=== PATIENT | female | born 1935 | race Caucasian/White ===

== ENCOUNTER 2021-01-11 15:17 | Outpatient (CLI) | payer MEDICARE, OTHER, MEDICAID, SELFPAY ==
[2021-01-11 15:45] LABS: Basophils % 0.2 %; Hematocrit 40.6 % (37.0-47.0); Hemoglobin 12.7 g/dL (11.5-15.3); Lymphocytes # 0.9 10^3/uL (0.8-4.8); Lymphocytes % 9.3 %; Mean Corpuscular HGB Conc 31.3 g/dL (30.0-36.0); Mean Corpuscular Hemoglobin 29.3 pg (28.0-34.0); Mean Corpuscular Volume 93.8 fL (81-99); Mean Platelet Volume 10.1 fL (7.4-10.4); Monocytes # 0.1 10^3/uL (0.2-0.9); Monocytes % 0.6 %; Neutrophils # 8.62 10^3/uL (1.8-7.7); Neutrophils % 89.3 %; Nucleated Red Blood Cells % 0 %; Platelet Count 360 10^3/cmm (130-400); Red Blood Count 4.33 10^6/uL (4.1-5.3); Red Cell Distribution Width 13.6 % (12.1-15.1); White Blood Count 9.7 10^3/uL (4.0-10.0)
[2021-01-11 16:30] LABS: Alanine Aminotransferase 7 U/L (0-33); Albumin Level 4.4 g/dL (3.5-5.2); Alkaline Phosphatase 168 IU/L (35-105); Anion Gap 13.3 (5-19); Aspartate Amino Transferase 13 U/L (0-32); Blood Urea Nitrogen 14 mg/dL (8-23); Calcium 9.5 mg/dL (8.5-10.5); Carbon Dioxide 35 mmol/L (22-29); Chloride 96 mmol/L (98-107); Globulin 2.9 g/dL (1.3-4.6); Glucose 142 mg/dL (65-115); Osmolality Calculated 293 mOsm/kg (285-295); Potassium 4.3 mmol/L (3.5-5.1); Sodium 140 mmol/L (136-145); Total Bilirubin 0.2 mg/dL (0.15-1.2); Total Protein 7.3 g/dL (6.6-8.7)
== END 2021-01-11 15:18 | disposition home or self-care (01) ==
PROVIDERS: Family Provider Family Medicine; Visit Provider Internal Medicine
DX: D64.9 Anemia, unspecified (principal); I10 Essential (primary) hypertension
CPT/HCPCS: 80053; 85025

== ENCOUNTER 2021-04-11 07:35 | Emergency (ER) | payer MEDICARE, OTHER, MEDICAID, SELFPAY ==
[2021-04-11] VITALS (11 sets, daily range): BP systolic 124–187; BP diastolic 56–100; PULSE 80–153; RESP 17–30; TEMP 37.4; O2SAT 95–97; BMI 44.3
--- NOTE | 2021-04-11 07:50 | XR_ITS ---
WS: [id number] Portable AP upright chest, 04/11/2021 Clinical Data: sob Comparison: Portable chest, 01/25/2019. Findings: No nodules, masses or effusions are seen. The heart is slightly enlarged. The pulmonary vas cularity is not increased. No pneumonia or pneumothorax is seen. Chronic bilateral interstitial thick ening is seen especially in the right lung. The aortic arch and descending aorta show calcification a nd tortuosity. 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 Monitor leads are on the ch est wall. XR/XR chest 1V portable [id number] Impression: 1. Chronic interstitial fibrosis unchanged. 2. Atherosclerosis and cardiomegaly.
--- NOTE | 2021-04-11 07:51 | ECG_ITS ---
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 Measurements Intervals [place] Rate: 156 P: -35 [place]: 130 QRS: 11 QRSD: 86 T: 0 QT: 164 QTc: 264 Interpretive Statements SUPRAVENTRICULAR TACHYCARDIA NONSPECIFIC ST & T-WAVE ABNORMALITY CRITICAL TEST RESULT Compared to ECG 01/25/2019 16:29:10 T-wave abnormality now present Sinus rhythm no longer present First degree AV block no longer present Electronically Signed On 04-12-2021 14:11:14 CDT by Clementina Kaplan M.D. [email or web address]/store/[id number] kendall
--- NOTE | 2021-04-11 07:52 | ED_ITS ---
HPI - SOB/Dyspnea General: Chief Complaint: Shortness of Breath/Dyspnea Stated Complaint: RESP DISTRESS Time Seen by Provider: 04/11/21 07:42 History of Present Illness: HPI Narrative: 85-year-old female sent from the senior care. Information obtained indicates she has been having cough and difficulty breathing for the past 3 days. Information is limited as the patient does have dementia. Patient does wear O2 per nasal cannula at the senior care. MD elicited complaint: shortness of breath and cough Pertinent past history: COPD and congestive heart failure Onset (ago): day(s) (3) Severity: moderate Treatment prior to arrival: oxygen Review of Systems General: Reports: ROS unobtainable due to mental status Narrative: Information from the senior care indicates she has been having difficulty breathing and a cough for the past 3 days. Physical Exam Narrative: EXAM NARRATIVE: 85-year-old female sent from the senior care with shortness of breath and cough for the past 3 days. She does have a history of COPD as well as CHF. Const: COMMON NORMALS: no acute distress and alert; negative for patient oriented x3 EXAM LIMITATIONS: other limitations (Patient does have dementia.) GENERAL APPEARANCE: cooperative, comfortable, well developed, ill appearing and frail appearing; not combative, not disheveled, not lethargic and not well hydrated NUTRITIONAL APPEARANCE: obese ORIENTATION/CONSCIOUSNESS: Yes awake, Yes oriented to person, Yes oriented to place and Yes Other orientation findings (Patient with history of dementia); not oriented to time and not lethargic HENMT: COMMON NORMALS: normocephalic and atraumatic; oral mucous membranes not moist (Oral mucosa appears dry.) HEAD & SCALP: normal to inspection, normocephalic and atraumatic; no Acrocyanosis present, no hematoma and no laceration FACE & SINUS: normal facial exam, sinuses nontender and face symmetric; no Acrocyanosis present Eye: COMMON NORMALS: Equal, round and reactive pupils present, EOMs intact bilaterally, conjunctivae normal and no scleral icterus GENERAL EYE: appearance normal, both eyes and all related structures and normal light reflex CONJUNCTIVA: Yes conjunctivae normal PUPIL: Yes Equal, round and reactive pupils present DIRECT OPHTHALMOSCOPY: Yes normal light reflex Neck/C-Spine: COMMON NORMALS: full ROM, no lymphadenopathy, supple, no meningeal signs and no JVD GENERAL: Yes normal visual inspection, Yes trachea midline, No anterior neck swelling, No lymphadenopathy and No tender Chest: COMMONS NORMALS: normal inspection of the chest and normal palpation of entire chest wall Resp: COMMON NORMALS: No use of accessory muscles EFFORT & INSPECTION: Yes able to speak in complete sentences, Yes symmetric chest movement, No respiratory distress, No labored, No grunting, No stridor, No Actively coughing, No retractions, No uses accessory muscles and Yes audible wheezes AUSCULTATION: crackles, rales, no rhonchi, wheezes and diminished lung sounds Cardio: COMMON NORMALS: no JVD, regular rhythm, No gallops present (Cardio), No clicks present (Cardio), No murmurs present (Cardio) and No rub (Cardio) RATE: tachycardic RHYTHM: regular rhythm GI: COMMON NORMALS: Normal to inspection, nondistended, normoactive bowel sounds present, Soft to palpation, non-tender, No hepatosplenomegaly present and no masses PALPATION: Yes Soft to palpation and Yes No hepatosplenomegaly present : COMMON NORMALS: Yes no CVA tenderness BLADDER/KIDNEY EXAM: Yes no CVA tenderness Back/Pelvis: COMMON NORMALS: no CVA tenderness Extremity: COMMON NORMALS: normal to inspection, full ROM and no calf tenderness Neuro: COMMON NORMALS: CN's II-XII intact bilaterally, moves all extremities and no focal motor deficits; negative for patient oriented x3 SENSORIUM/ORIENTATION: Yes alert, Yes oriented to person, Yes oriented to place, No oriented to time, Yes Orientation impaired and No lethargic MENINGEAL SIGNS: Yes no meningeal signs Psych: COMMON NORMALS: cooperative, normal affect and speech normal ATTITUDE: Yes calm ACTIVITY/MOTOR BEHAVIOR: Yes appropriate eye contact SPEECH: Yes normal speech Skin: NARRATIVE SKIN EXAM: Skin tear noted to the left hand. Course Reevaluation(s): Reevaluation #1: After the breathing treatment the patient states she is feeling better. Reevaluation shows improved aeration. Vital Signs: Vital signs: Vital Signs Temperature 99.3 F 04/11/21 07:36 Pulse Rate 82 04/11/21 11:19 Respiratory Rate 21 H 04/11/21 11:19 Blood Pressure 131/56 04/11/21 11:19 Pulse Oximetry 96 04/11/21 11:19 MDM - SOB/Dyspnea Lab Data: Labs: Lab Results 04/11/21 04/11/21 04/11/21 Range/Units 07:49 07:49 07:49 WBC 20.4 H (4.0-10.0) 10^3/ uL RBC 4.30 (4.1-5.3) 10^6/u L Hgb 12.9 (11.5-15.3) g/dL Hct 39.9 (37.0-47.0) % MCV 92.8 (81-99) fL MCH 30.0 (28.0-34.0) pg MCHC 32.3 (30.0-36.0) g/dL RDW 13.2 (12.1-15.1) % Plt Count 331 (130-400) 10^3/c mm MPV 9.9 (7.4-10.4) fL Neut % (Auto) 83.8 % Lymph % (Auto) 7.1 % [place] % (Auto) 8.4 % Eos % (Auto) 0.0 % Baso % (Auto) 0.2 % Neut # (Auto) 17.10 H (1.8-7.7) 10^3/u L Lymph # (Auto) 1.5 (0.8-4.8) 10^3/u L [place] # (Auto) 1.7 H (0.2-0.9) 10^3/u L Eos # (Auto) 0.0 (0.0-0.8) 10^3/u L Baso # (Auto) 0.1 (0.0-0.1) 10^3/u L Nucleated RBC % (a uto) 0 % Nucleated RBCs # 0.0 /100WBC Sodium 137 (136-145) mmol/L Potassium 3.3 L (3.5-5.1) mmol/L Chloride 96 L (98-107) mmol/L Carbon Dioxide 28 (22-29) mmol/L Anion Gap 16.3 (5-19) BUN 15 (8-23) mg/dL Creatinine 0.8 (0.5-0.9) mg/dL GFR Calculation Not Reportable Glucose 141 H (65-115) mg/dL Calculated Osmolal ity 287 (285-295) mOsm/k g Lactic Acid 1.7 (0.5-2.2) mmol/L Calcium 8.8 (8.5-10.5) mg/dL Magnesium 2.3 (1.7-2.3) mg/dL Total Bilirubin 0.9 (0.15-1.2) mg/dL AST 14 (0-32) U/L ALT 7 (0-33) U/L Alkaline Phosphata se 152 H (35-105) IU/L Troponin T Baselin e (0-10) ng/L Troponin T 120 Min citizen [place] (0-10) ng/L Delta Troponin T (0-10) ABS# NT-Pro-B Natriuret Pep (0-450) pg/mL Total Protein 6.7 (6.6-8.7) g/dL Albumin 4.0 (3.5-5.2) g/dL Globulin 2.7 (1.3-4.6) g/dL TSH (0.27-4.20) uIU/ mL Urine Color (Yellow) Urine Appearance (CLEAR) Urine pH (5-7) Ur Specific Gravit y (1.005-1.030) Urine Protein (Negative) Urine Glucose (UA) (Normal) Urine Ketones (Negative) Urine Blood (Negative) Urine Nitrate (Negative) Urine Bilirubin (Negative) Urine Urobilinogen (Negative) mg/dL Ur Leukocyte Cheryle ase (Negative) Urine RBC (0-2) /hpf Urine WBC (0-5) /hpf Ur Squamous Epith Cells (0-5) /hpf Ur Transition Epit h Cell /hpf Amorphous Sediment Urine Bacteria (NONE) /hpf Influenza Type A A g (Negative) Influenza Type B A g (Negative) 04/11/21 04/11/21 04/11/21 Range/Units 07:49 07:49 07:49 WBC (4.0-10.0) 10^3/ uL RBC (4.1-5.3) 10^6/u L Hgb (11.5-15.3) g/dL Hct (37.0-47.0) % MCV (81-99) fL MCH (28.0-34.0) pg MCHC (30.0-36.0) g/dL RDW (12.1-15.1) % Plt Count (130-400) 10^3/c mm MPV (7.4-10.4) fL Neut % (Auto) % Lymph % (Auto) % [place] % (Auto) % Eos % (Auto) % Baso % (Auto) % Neut # (Auto) (1.8-7.7) 10^3/u L Lymph # (Auto) (0.8-4.8) 10^3/u L [place] # (Auto) (0.2-0.9) 10^3/u L Eos # (Auto) (0.0-0.8) 10^3/u L Baso # (Auto) (0.0-0.1) 10^3/u L Nucleated RBC % (a uto) % Nucleated RBCs # /100WBC Sodium (136-145) mmol/L Potassium (3.5-5.1) mmol/L Chloride (98-107) mmol/L Carbon Dioxide (22-29) mmol/L Anion Gap (5-19) BUN (8-23) mg/dL Creatinine (0.5-0.9) mg/dL GFR Calculation Glucose (65-115) mg/dL Calculated Osmolal ity (285-295) mOsm/k g Lactic Acid (0.5-2.2) mmol/L Calcium (8.5-10.5) mg/dL Magnesium (1.7-2.3) mg/dL Total Bilirubin (0.15-1.2) mg/dL AST (0-32) U/L ALT (0-33) U/L Alkaline Phosphata se (35-105) IU/L Troponin T Baselin e 42 H (0-10) ng/L Troponin T 120 Min [place] (0-10) ng/L Delta Troponin T (0-10) ABS# NT-Pro-B Natriuret Pep 7341 H (0-450) pg/mL Total Protein (6.6-8.7) g/dL Albumin (3.5-5.2) g/dL Globulin (1.3-4.6) g/dL TSH 0.67 (0.27-4.20) uIU/ mL Urine Color (Yellow) Urine Appearance (CLEAR) Urine pH (5-7) Ur Specific Gravit y (1.005-1.030) Urine Protein (Negative) Urine Glucose (UA) (Normal) Urine Ketones (Negative) Urine Blood (Negative) Urine Nitrate (Negative) Urine Bilirubin (Negative) Urine Urobilinogen (Negative) mg/dL Ur Leukocyte Cheryle ase (Negative) Urine RBC (0-2) /hpf Urine WBC (0-5) /hpf Ur Squamous Epith Cells (0-5) /hpf Ur Transition Epit h Cell /hpf Amorphous Sediment Urine Bacteria (NONE) /hpf Influenza Type A A g (Negative) Influenza Type B A g (Negative) 04/11/21 04/11/21 04/11/21 Range/Units 07:55 08:26 10:00 WBC (4.0-10.0) 10^3/ uL RBC (4.1-5.3) 10^6/u L Hgb (11.5-15.3) g/dL Hct (37.0-47.0) % MCV (81-99) fL MCH (28.0-34.0) pg MCHC (30.0-36.0) g/dL RDW (12.1-15.1) % Plt Count (130-400) 10^3/c mm MPV (7.4-10.4) fL Neut % (Auto) % Lymph % (Auto) % [place] % (Auto) % Eos % (Auto) % Baso % (Auto) % Neut # (Auto) (1.8-7.7) 10^3/u L Lymph # (Auto) (0.8-4.8) 10^3/u L [place] # (Auto) (0.2-0.9) 10^3/u L Eos # (Auto) (0.0-0.8) 10^3/u L Baso # (Auto) (0.0-0.1) 10^3/u L Nucleated RBC % (a uto) % Nucleated RBCs # /100WBC Sodium (136-145) mmol/L Potassium (3.5-5.1) mmol/L Chloride (98-107) mmol/L Carbon Dioxide (22-29) mmol/L Anion Gap (5-19) BUN (8-23) mg/dL Creatinine (0.5-0.9) mg/dL GFR Calculation Glucose (65-115) mg/dL Calculated Osmolal ity (285-295) mOsm/k g Lactic Acid (0.5-2.2) mmol/L Calcium (8.5-10.5) mg/dL Magnesium (1.7-2.3) mg/dL Total Bilirubin (0.15-1.2) mg/dL AST (0-32) U/L ALT (0-33) U/L Alkaline Phosphata se (35-105) IU/L Troponin T Baselin e (0-10) ng/L Troponin T 120 Min [place] 45.92 H (0-10) ng/L Delta Troponin T 3.92 (0-10) ABS# NT-Pro-B Natriuret Pep (0-450) pg/mL Total Protein (6.6-8.7) g/dL Albumin (3.5-5.2) g/dL Globulin (1.3-4.6) g/dL TSH (0.27-4.20) uIU/ mL Urine Color Yellow (Yellow) Urine Appearance Clear (CLEAR) Urine pH 7 (5-7) Ur Specific Gravit y 1.005 (1.005-1.030) Urine Protein 1+ H (Negative) Urine Glucose (UA) Norm (Normal) Urine Ketones Negative (Negative) Urine Blood 2+ H (Negative) Urine Nitrate Negative (Negative) Urine Bilirubin Neg (Negative) Urine Urobilinogen Norm (Negative) mg/dL Ur Leukocyte Cheryle ase Negative (Negative) Urine RBC 0-4 H (0-2) /hpf Urine WBC Rare (0-5) /hpf Ur Squamous Epith Cells 0-4 H (0-5) /hpf Ur Transition Epit h Cell Rare /hpf Amorphous Sediment Not Reportable Urine Bacteria 1+ H (NONE) /hpf Influenza Type A A g Negative (Negative) Influenza Type B A g Negative (Negative) Discharge Plan Discharge Patient Disposition: Home Clinical Impression: Acute exacerbation of chronic obstructive airways disease Acute bronchitis Qualifiers: Bronchitis organism: unspecified organism Qualified Code(s): J20.9 - Acute bronchitis, unspecified Condition: Stable Prescriptions: New azithromycin 250 mg tablet 250 mg PO DAILY 4 Days Qty: 4 RF: 0 albuterol sulfate 2.5 mg /3 mL (0.083 %) solution for nebulization 2.5 mg inhalation Q4H Qty: 180 RF: 0 Discharge Orders: Discharge ED (Routine); Ordered 04/11/21 Ordered By: Daron Handy Referrals: Robert Almendarez DO [Primary Care Provider] - Discharge Diet: Usual diet Discharge Activity: Resume usual activity Patient Instructions: Opioid Safety Activity Restrictions/Additional Instructions: Please use the albuterol per nebulizer every 4 hours. Start the azithromycin 250 mg tomorrow 04/12/2021. Continue O2 per nasal cannula. Continue other medications as prescribed. Have her follow-up with her primary care provider soon as possible. Coding Level of Care Code ED Fur Weigher for Rico Fwivonne Exam Comprehensive
[2021-04-11] MEDS: sodium chloride 0.9% 500 ML 999 ML IV (07:55)
[2021-04-11 07:57] LABS: Basophils # 0.1 10^3/uL (0.0-0.1); Basophils % 0.2 %; Hematocrit 39.9 % (37.0-47.0); Hemoglobin 12.9 g/dL (11.5-15.3); Lymphocytes # 1.5 10^3/uL (0.8-4.8); Lymphocytes % 7.1 %; Mean Corpuscular HGB Conc 32.3 g/dL (30.0-36.0); Mean Corpuscular Volume 92.8 fL (81-99); Mean Platelet Volume 9.9 fL (7.4-10.4); Monocytes # 1.7 10^3/uL (0.2-0.9); Monocytes % 8.4 %; Neutrophils % 83.8 %; Nucleated Red Blood Cells % 0 %; Platelet Count 331 10^3/cmm (130-400); Red Cell Distribution Width 13.2 % (12.1-15.1); White Blood Count 20.4 10^3/uL (4.0-10.0)
[2021-04-11] MEDS: ipratropium-albuterol 3 mL Neb INHALATION (08:12)
[2021-04-11 08:14] LABS: Troponin(5th) Baseline 42 ng/L (0-10)
[2021-04-11 08:15] LABS: Alanine Aminotransferase 7 U/L (0-33); Alkaline Phosphatase 152 IU/L (35-105); Anion Gap 16.3 (5-19); Aspartate Amino Transferase 14 U/L (0-32); Blood Urea Nitrogen 15 mg/dL (8-23); Calcium 8.8 mg/dL (8.5-10.5); Carbon Dioxide 28 mmol/L (22-29); Chloride 96 mmol/L (98-107); Globulin 2.7 g/dL (1.3-4.6); Glucose 141 mg/dL (65-115); Magnesium 2.3 mg/dL (1.7-2.3); Osmolality Calculated 287 mOsm/kg (285-295); Potassium 3.3 mmol/L (3.5-5.1); Sodium 137 mmol/L (136-145); Total Bilirubin 0.9 mg/dL (0.15-1.2); Total Protein 6.7 g/dL (6.6-8.7)
[2021-04-11 08:16] LABS: Lactic Sepsis W/Reflex 1.7 mmol/L (0.5-2.2)
[2021-04-11 08:41] LABS: Thyroid Stimulating Hormone 0.67 uIU/mL (0.27-4.20)
[2021-04-11 08:49] LABS: Bilirubin Urine Neg (Negative); Blood Urine 2+ (Negative); Glucose Urine UA Norm (Normal); Ketones Urine Negative (Negative); Leukocyte Esterase Urine Negative (Negative); Nitrate Urine Negative (Negative); Protein Urine 1+ (Negative); Specific Gravity, Urine 1.005 (1.005-1.030); Urine Appearance Clear (CLEAR); Urine Color Yellow (Yellow); Urobilinogen Urine Norm (Negative); pH Urine 7 (5-7)
[2021-04-11 08:50] LABS: Add Urine Microscopic? YES
[2021-04-11 09:01] LABS: Add Urine Culture? No; Bacteria Urine 1+ /hpf; RBC Urine 0-4 /hpf (0-2); Squamous Epithelial Cell Urine 0-4 /hpf (0-5); Transitional Epi Cells Urine RARE /hpf; WBC Urine RARE /hpf (0-5)
[2021-04-11 09:02] LABS: Influenza A by IFA Negative (Negative); Influenza B by IFA Negative (Negative)
[2021-04-11 09:05] LABS: NT Pro B Type Natriuretic Pept 7341 pg/mL (0-450)
--- NOTE | 2021-04-11 09:51 | ECG_ITS ---
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 Measurements Intervals [place] Rate: 84 P: 73 [place]: 194 QRS: -4 QRSD: 90 T: 121 QT: 380 QTc: 450 Interpretive Statements SINUS RHYTHM ST DEVIATION AND MODERATE T-WAVE ABNORMALITY, CONSIDER LATERAL ISCHEMIA [-0.1+ mV T WAVE IN I/aVL/V5/V6] Compared to ECG 01/25/2019 16:29:10 T-wave abnormality now present Possible ischemia now present First degree AV block no longer present Electronically Signed On 04-11-2021 18:27:03 CDT by Clementnia Kaplan M.D. [id number]
[2021-04-11 10:35] LABS: Troponin 5 2HR 45.92 ng/L (0-10); Troponin 5 2HR Delta 3.92 ABS# (0-10)
[2021-04-11] MEDS: azithromycin 250 mg Tablet 500 MG PO (11:11)
== END 2021-04-11 11:52 | disposition home or self-care (01) ==
PROVIDERS: Emergency Provider Emergency Medicine; PCP Internal Medicine
DX: J44.0 Chronic obstructive pulmonary disease with (acute) lower respiratory infection (principal); J20.9 Acute bronchitis, unspecified; J44.1 Chronic obstructive pulmonary disease with (acute) exacerbation; I70.0 Atherosclerosis of aorta; R06.00 Dyspnea, unspecified
CPT/HCPCS: 36415; 51702; 71045; 80053; 81001; 83605; 83735; 83880; 84443; 84484; 85025; 87040; 87804; 93005; 94640; 99284; J7040; Q0144

== ENCOUNTER 2021-10-24 07:21 | Emergency (ER) | payer MEDICARE, OTHER, MEDICAID, SELFPAY ==
[2021-10-24] VITALS (7 sets, daily range): BP systolic 170–221; BP diastolic 74–97; PULSE 87–98; RESP 20–26; TEMP 39.4; O2SAT 95–99
--- NOTE | 2021-10-24 07:23 | ED_ITS ---
HPI - SOB/Dyspnea General: Chief Complaint: Shortness of Breath/Dyspnea Stated Complaint: NOT FEELING WELL/ COVID BOOSTER YEST Time Seen by Provider: 10/24/21 07:22 History of Present Illness: HPI Narrative: Ms Roberts is an 86-year-old lady with reported history of COPD, chronic hypoxic respiratory failure, heart failure, who presents to the emergency department via EMS due to shortness of breath. The patient reports feeling mildly ill yesterday and received her Covid booster. This morning she woke up feeling short of breath. She does endorse associated cough. No other infectious symptoms. Intensity of symptoms is moderate. Course is unclear. At baseline she wears 4 L of oxygen. She is unsure of any other recent changes in health. EMS gave the patient 80 mg Lasix. Reportedly she has missed a few doses for unclear reasons. Found to be hypoxemic on baseline oxygen with oxygen saturations high 80s. Review of Systems General: Reports: 10 or more systems reviewed and unremarkable except in HPI and below Physical Exam Narrative: EXAM NARRATIVE: GENERAL/CONSTITUTIONAL -mildly ill-appearing. Increased respiratory effort Eyes - PERRL, no conjunctival injection ENMT - Atraumatic external nose and ears. Moist mucous membranes NECK - supple. trachea midline CARDIOVASCULAR - regular rate and rhythm. Bilateral lower extremity 1-2+ edema. RESPIRATORY -diminished to auscultation bilaterally. End expiratory wheezing, c rackles. Increased respiratory effort and rate. ABDOMEN/GI - Nontender/Nondistended. MSK - Extremities without obvious deformity or tenderness to palpation SKIN - Warm, Dry NEURO - alert and appropriately oriented. Moves all extremities equally. Poor memory of medical conditions. Course ED course: - Patient was seen and evaluated by me at bedside - Patient placed on cardiac monitors, IV access obtained - Initial evaluation notable for respiratory status as noted above. No focal neurologic deficits though patient is very poor historian. No family at bedside - Labs notable for No leukocytosis, hemoglobi slightly worse than baseline. metabolic panel without significant abnormality to explain patient's symptoms. BNP is improved from recent prior otherwise elevated. Urinalysis not concerning for urinary tract infection. - Imaging notable for no acute abnormality to explain patient's respiratory status - Initially the patient was declining further medical work-up including repeat troponin. 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 Repeat troponin intermediate range however in discussion with the DPOA patient does not wish to pursue aggressive medical therapy/further hospitalization at this time. Additionally patient does not report chest pain. - Upon serial reexamination after treatment the patient was similar. Fever felt to likely be related to recent vaccination and did improve despite documentation of final vital signs which was erroneous - Based on patient history, evaluation, labs, and imaging as interpreted the most likely cause of the patient's condition is exacerbation of COPD which improved after therapy and patient now currently at baseline and peripheral volume overload as evidence of acute on chronic heart failure for which patient received Lasix. Degree of medical decision making was high given patient's baseline mental status and multiple etiology of patient's presenting symptoms. - The results of ED evaluation were discussed with the patient including prescriptions and/or symptomatic cares (if applicable) including appropriate and responsible use, followup plan, and return precautions. The patient verbalized understanding and felt safe for discharge. - Patient discharged in satisfactory condition. Vital Signs: Vital signs: Vital Signs Temperature 102.9 F H 10/24/21 07:41 Pulse Rate 87 10/24/21 13:11 Respiratory Rate 26 H 10/24/21 07:45 Blood Pressure 189/96 10/24/21 13:11 Pulse Oximetry 99 10/24/21 13:11 MDM - SOB/Dyspnea Medical Records: Attestation: I reviewed the patient's medical records. Lab Data: Attestation: I reviewed the patient's lab results. Labs: Lab Results 10/24/21 10/24/21 10/24/21 07:51 08:21 08:21 WBC Cancelled Corrected WBC Cancelled RBC Cancelled Hgb Cancelled Hct Cancelled MCV Cancelled MCH Cancelled MCHC Cancelled RDW Cancelled Plt Count Cancelled MPV Cancelled Gran % Cancelled Neut % (Auto) Cancelled Lymph % (Auto) Cancelled [place] % (Auto) Cancelled Eos % (Auto) Cancelled Baso % (Auto) Cancelled Neut # (Auto) Cancelled Lymph # (Auto) Cancelled [place] # (Auto) Cancelled Eos # (Auto) Cancelled Baso # (Auto) Cancelled Absolute Gran (aut o) Cancelled Nucleated RBC % (a uto) Cancelled Nucleated RBCs # Cancelled Specimen Type Arterial Sample Site Radial, right ABG pH 7.50 H (7.35-7.45) ABG pCO2 45.2 mmHg H mmHg (35-45) ABG pO2 87.1 mmHg mmHg (80.0-100.0) ABG HCO3 35.5 mmol/L H mmo l/L (22-26) ABG Base Excess 11.1 mmol/L H mmo l/L (-2.0-2.0) Jerod Test Pos Hematocrit 32.9 % L % (37-47) Hgb O2 Saturation 96.6 % % (95-100) Carboxyhemoglobin 1.0 %THgb %THgb (0.4-20.1) Methemoglobin 0.6 % % (0.4-1.5) Total Hemoglobin 10.7 g/dL L g/dL (12-16) O2 Delivery Device Nc O2 Liters/Min 4.0 % % Education Department Registrar ID Gd Sodium 135 mmol/L L mmol /L (136-145) Potassium 4.0 mmol/L mmol/L (3.5-5.1) Chloride 94 mmol/L L mmol/ L (98-107) Carbon Dioxide 28 mmol/L mmol/L (22-29) Anion Gap 17.0 (5-19) BUN 14 mg/dL mg/dL (8-23) Creatinine 0.7 mg/dL mg/dL (0.5-0.9) GFR Calculation Not Reportable Glucose 96 mg/dL mg/dL (65-115) Calculated Osmolal ity 280 mOsm/kg L mOs m/kg (285-295) Lactic Acid Calcium 8.8 mg/dL mg/dL (8.5-10.5) Total Bilirubin 0.6 mg/dL mg/dL (0.15-1.2) AST 14 U/L U/L (0-32) ALT 6 U/L U/L (0-33) Alkaline Phosphata se 150 IU/L H IU/L (35-105) Troponin T Baselin e Troponin T 120 Min crow Delta Troponin T C-Reactive Protein 13.6 mg/L H mg/L (0.0-4.9) NT-Pro-B Natriuret Pep 1045 pg/mL H pg/m L (0-450) Total Protein 7.4 g/dL g/dL (6.6-8.7) Albumin 4.1 g/dL g/dL (3.5-5.2) Globulin 3.3 g/dL g/dL (1.3-4.6) Procalcitonin 0.07 ng/mL ng/mL (0-0.5) TSH 0.41 uIU/mL uIU/m L (0.27-4.20) Urine Color Urine Appearance Urine pH Ur Specific Gravit y Urine Protein Urine Glucose (UA) Urine Ketones Urine Blood Urine Nitrate Urine Bilirubin Prot Sulfosalicyli c Acd Urine Urobilinogen Ur Leukocyte Cheryle ase Urine RBC Urine WBC Ur Squamous Epith Cells Amorphous Sediment Urine Bacteria SARS-CoV-2 Ag (Rap id) 10/24/21 10/24/21 10/24/21 08:21 08:21 08:35 WBC Corrected WBC RBC Hgb Hct MCV MCH MCHC RDW Plt Count MPV Gran % Neut % (Auto) Lymph % (Auto) [place] % (Auto) Eos % (Auto) Baso % (Auto) Neut # (Auto) Lymph # (Auto) [place] # (Auto) Eos # (Auto) Baso # (Auto) Absolute Gran (aut o) Nucleated RBC % (a uto) Nucleated RBCs # Specimen Type Sample Site ABG pH ABG pCO2 ABG pO2 ABG HCO3 ABG Base Excess Jerod Test Hematocrit Hgb O2 Saturation Carboxyhemoglobin Methemoglobin Total Hemoglobin O2 Delivery Device O2 Liters/Min Education Department Registrar ID Sodium Potassium Chloride Carbon Dioxide Anion Gap BUN Creatinine GFR Calculation Glucose Calculated Osmolal ity Lactic Acid 1.3 mmol/L mmol/L (0.5-2.2) Calcium Total Bilirubin AST ALT Alkaline Phosphata se Troponin T Baselin e 24 ng/L H ng/L (0-10) Troponin T 120 Min crow Delta Troponin T C-Reactive Protein NT-Pro-B Natriuret Pep Total Protein Albumin Globulin Procalcitonin TSH Urine Color Urine Appearance Urine pH Ur Specific Gravit y Urine Protein Urine Glucose (UA) Urine Ketones Urine Blood Urine Nitrate Urine Bilirubin Prot Sulfosalicyli c Acd Urine Urobilinogen Ur Leukocyte Cheryle ase Urine RBC Urine WBC Ur Squamous Epith Cells Amorphous Sediment Urine Bacteria SARS-CoV-2 Ag (Rap id) Negative (Negative) 10/24/21 10/24/21 10/24/21 09:24 10:40 11:43 WBC 10.2 10^3/uL H 10 ^3/uL (4.0-10.0) Corrected WBC RBC 3.71 10^6/uL L 10 ^6/uL (4.1-5.3) Hgb 11.2 g/dL L g/dL (11.5-15.3) Hct 35.1 % L % (37.0-47.0) MCV 94.6 fl fl (81-99) MCH 30.2 pg pg (28.0-34.0) MCHC 31.9 g/dL g/dL (30.0-36.0) RDW 13.2 % % (12.1-15.1) Plt Count 225 10^3/cmm 10^3 /cmm (130-400) MPV 12.4 fL H fL (7.4-10.4) Gran % Neut % (Auto) 89.6 % % Lymph % (Auto) 4.3 % % [place] % (Auto) 5.0 % % Eos % (Auto) 0.2 % % Baso % (Auto) 0.5 % % Neut # (Auto) 9.12 10^3/uL H 10 ^3/uL (1.8-7.7) Lymph # (Auto) 0.4 10^3/uL L 10^ 3/uL (0.8-4.8) [place] # (Auto) 0.5 10^3/uL 10^3/ uL (0.2-0.9) Eos # (Auto) 0.0 10^3/uL 10^3/ uL (0.0-0.8) Baso # (Auto) 0.1 10^3/uL 10^3/ uL (0.0-0.1) Absolute Gran (aut o) Nucleated RBC % (a uto) 0.2 % % Nucleated RBCs # 0.0 /100WBC /100W BC Specimen Type Sample Site ABG pH ABG pCO2 ABG pO2 ABG HCO3 ABG Base Excess Jerod Test Hematocrit Hgb O2 Saturation Carboxyhemoglobin Methemoglobin Total Hemoglobin O2 Delivery Device O2 Liters/Min Education Department Registrar ID Sodium Potassium Chloride Carbon Dioxide Anion Gap BUN Creatinine GFR Calculation Glucose Calculated Osmolal ity Lactic Acid Calcium Total Bilirubin AST ALT Alkaline Phosphata se Troponin T Baselin e Troponin T 120 Min crow 29.82 ng/L H ng/L (0-10) Delta Troponin T 5.82 ABS# ABS# (0-10) C-Reactive Protein NT-Pro-B Natriuret Pep Total Protein Albumin Globulin Procalcitonin TSH Urine Color Straw (Yellow) Urine Appearance Clear (CLEAR) Urine pH 8 H (5-7) Ur Specific Gravit y 1.025 (1.005-1.030) Urine Protein Neg (Negative) Urine Glucose (UA) Norm (Normal) Urine Ketones Negative (Negative) Urine Blood 2+ H (Negative) Urine Nitrate Positive H (Negative) Urine Bilirubin Neg (Negative) Prot Sulfosalicyli c Acd Negative (Negative) Urine Urobilinogen Norm mg/dL mg/dL (Negative) Ur Leukocyte Cheryle ase Trace H (Negative) Urine RBC 0-4 /hpf H /hpf (0-2) Urine WBC 0-4 /hpf H /hpf (0-5) Ur Squamous Epith Cells Rare /hpf /hpf (0-5) Amorphous Sediment Not Reportable Urine Bacteria 1+ /hpf H /hpf (NONE) SARS-CoV-2 Ag (Rap id) EKG Data^: EKG 1: Attestation: I personally reviewed and interpreted this EKG as follows: EKG Interpretation Date: 10/24/21 EKG interpretation time: 07:55 Interpretation: Twelve-lead EKG shows a regular rhythm at a rate of 93. WA interval 199, QRS duration 94, QTc 398. Left axis deviation. Interpretation: Sinus rhythm. EKG 2: Attestation: I personally reviewed and interpreted this EKG as follows: EKG Interpretation Date: 10/24/21 EKG interpretation time: 10:02 Interpretation: Twelve-lead EKG shows a regular rhythm at a rate of 94 WA 216, QRS duration 94, QTc 425 Left axis deviation Interpretation: Sinus rhythm. First-degree AV block. Discharge Plan Discharge Patient Disposition: [facility] Clinical Impression: Acute exacerbation of chronic obstructive pulmonary disease, Volume overload Condition: Stable Discharge Orders: Discharge ED (Routine); Ordered 10/24/21 Ordered By: Lambert Arthur Referrals: Robert Almendarez DO [Primary Care Provider] - Discharge Diet: Cardiac and Low Salt Discharge Activity: Resume usual activity Patient Instructions: Heart Failure (ED), COPD (Chronic Obstructive Pulmonary Disease) (ED) Activity Restrictions/Additional Instructions: Thank you for visiting the emergency department. You were seen and evaluated for shortness of breath. The exact cause of your symptoms is unclear, we do not see signs of infection, you may have COPD exacerbation and will be given prescriptions. Additionally you do have some evidence of volume overload, I recommend continuing your home diuretic, EMS gave you 80 mg of Lasix which should help. Please follow-up with your primary care provider. Please return to emergency department for worsening symptoms or anything else that you are concerned about and feel needs emergency department evaluation. Coding Level of Care Code ED Shadowgraph Operator for Rico Hinkle
--- NOTE | 2021-10-24 07:33 | XR_ITS ---
WS: [email or web address] PORTABLE CHEST HISTORY: sob COMPARISON: 04/11/2021 Lung volumes are decreased. Chronic interstitial thickening throughout both lungs. No focal consolida tion or significant progression of disease. No pneumonia. No pleural effusion or pneumothorax. Cardiac size: Mildly enlarged cardiac silhouette. Mediastinum/Aorta: Moderate atherosclerosis aorta. Osteopenia. High riding humeral heads from prior rotator cuff tears. XR/XR chest 1V portable [id number] IMPRESSION: 1. Chronic fibrosis. No superimposed pneumonia or interval change since 021. 2. Moderately calcified thoracic aorta.
--- NOTE | 2021-10-24 07:34 | ECG_ITS ---
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 Measurements Intervals [place] Rate: 93 P: 43 NC: 199 QRS: -17 QRSD: 94 T: 77 QT: 347 QTc: 433 Interpretive Statements SINUS RHYTHM LEFT VENTRICULAR HYPERTROPHY AND ST-T CHANGE [VOLTAGE CRITERIA PLUS ST/T ABNORMALITY] Compared to ECG 04/11/2021 09:57:12 Left ventricular hypertrophy now present ST (T wave) deviation now present T-wave abnormality no longer present Possible ischemia no longer present Electronically Signed On 10-24-2021 17:36:31 EMAIL ADMINISTRATOR by Eric Moncada M.D. [email or web address]/[id number]
[2021-10-24] MEDS: ipratropium-albuterol 3 mL Neb INHALATION (07:53)
[2021-10-24 08:13] LABS: ABG PCO2 45.2 mmHg (35-45); Arterial Blood Gas Hematocrit 32.9 % (37-47); Base Excess ABG 11.1 mmol/L (-2.0-2.0); Blood Gas Allen Test Pos; Blood Gas Operator Identificat GD; Blood Gas Sample Site Radial, right; Blood Gas Sample Type Arterial; HCO3 ABG 35.5 mmol/L (22-26); HGB O2 Sat 96.6 % (95-100); Methemoglobin 0.6 % (0.4-1.5); Oxygen Device NC; PO2 ABG 87.1 mmHg (80.0-100.0); Total Hemoglobin 10.7 g/dL (12-16)
[2021-10-24 09:05] LABS: Lactic Sepsis W/Reflex 1.3 mmol/L (0.5-2.2)
[2021-10-24] MEDS: acetaminophen 325 mg Tablet 650 MG PO (09:10)
[2021-10-24 09:11] LABS: Troponin(5th) Baseline 24 ng/L (0-10)
[2021-10-24 09:18] LABS: NT Pro B Type Natriuretic Pept 1045 pg/mL (0-450); Procalcitonin 0.07 ng/mL (0-0.5); Thyroid Stimulating Hormone 0.41 uIU/mL (0.27-4.20)
[2021-10-24] MEDS: ketorolac 30 mg/mL INJ 15 MG IVP (09:26)
[2021-10-24 09:29] LABS: Alanine Aminotransferase 6 U/L (0-33); Albumin Level 4.1 g/dL (3.5-5.2); Alkaline Phosphatase 150 IU/L (35-105); Aspartate Amino Transferase 14 U/L (0-32); Blood Urea Nitrogen 14 mg/dL (8-23); C Reactive Protein 13.6 mg/L (0.0-4.9); Calcium 8.8 mg/dL (8.5-10.5); Carbon Dioxide 28 mmol/L (22-29); Chloride 94 mmol/L (98-107); Globulin 3.3 g/dL (1.3-4.6); Glucose 96 mg/dL (65-115); Osmolality Calculated 280 mOsm/kg (285-295); Sodium 135 mmol/L (136-145); Total Bilirubin 0.6 mg/dL (0.15-1.2); Total Protein 7.4 g/dL (6.6-8.7)
--- NOTE | 2021-10-24 09:34 | ECG_ITS ---
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 Measurements Intervals [place] Rate: 94 P: 86 RI: 216 QRS: -9 QRSD: 94 T: 84 QT: 373 QTc: 468 Interpretive Statements SINUS RHYTHM WITH FIRST DEGREE AV BLOCK LEFT VENTRICULAR HYPERTROPHY AND ST-T CHANGE [VOLTAGE CRITERIA PLUS ST/T ABNORMALITY] Compared to ECG 10/24/2021 07:47:42 First degree AV block now present ST (T wave) deviation still present Electronically Signed On 10-24-2021 17:44:04 FOOD ASSEMBLER [employer] KITCHEN by Eric Moncada M.D. [id number]
[2021-10-24 09:38] LABS: SARS Covid-2 Antigen Negative (Negative)
[2021-10-24 09:38] LABS: Basophils # 0.1 10^3/uL (0.0-0.1); Basophils % 0.5 %; Eosinophils % 0.2 %; Hematocrit 35.1 % (37.0-47.0); Hemoglobin 11.2 g/dL (11.5-15.3); Lymphocytes # 0.4 10^3/uL (0.8-4.8); Lymphocytes % 4.3 %; Mean Corpuscular HGB Conc 31.9 g/dL (30.0-36.0); Mean Corpuscular Hemoglobin 30.2 pg (28.0-34.0); Mean Corpuscular Volume 94.6 fl (81-99); Mean Platelet Volume 12.4 fL (7.4-10.4); Monocytes # 0.5 10^3/uL (0.2-0.9); Neutrophils # 9.12 10^3/uL (1.8-7.7); Neutrophils % 89.6 %; Nucleated Red Blood Cells % 0.2 %; Platelet Count 225 10^3/cmm (130-400); Red Blood Count 3.71 10^6/uL (4.1-5.3); Red Cell Distribution Width 13.2 % (12.1-15.1); White Blood Count 10.2 10^3/uL (4.0-10.0)
[2021-10-24 11:17] LABS: Troponin 5 2HR 29.82 ng/L (0-10); Troponin 5 2HR Delta 5.82 ABS# (0-10)
[2021-10-24 12:22] LABS: Protein Urine Neg (Negative); Specific Gravity, Urine 1.025 (1.005-1.030); Urine Appearance Clear (CLEAR); Urine Color Straw (Yellow); pH Urine 8 (5-7)
[2021-10-24 12:23] LABS: Add Urine Culture? Yes; Add Urine Microscopic? YES; Bacteria Urine 1+ /hpf; Bilirubin Urine Neg (Negative); Blood Urine 2+ (Negative); Glucose Urine UA Norm (Normal); Ketones Urine Negative (Negative); Leukocyte Esterase Urine Trace (Negative); Nitrate Urine Positive (Negative); RBC Urine 0-4 /hpf (0-2); Squamous Epithelial Cell Urine RARE /hpf (0-5); Urobilinogen Urine Norm (Negative); WBC Urine 0-4 /hpf (0-5)
[2021-10-24 12:43] LABS: Sulfosalicylic Acid Urine Negative (Negative)
== END 2021-10-24 13:15 ==
PROVIDERS: Emergency Provider Emergency Medicine; PCP Internal Medicine
DX: J44.1 Chronic obstructive pulmonary disease with (acute) exacerbation (principal); E87.70 Fluid overload, unspecified
CPT/HCPCS: 36600; 71045; 80053; 81001; 82805; 83605; 83880; 84145; 84443; 84484; 85025; 86140; 87086; 87426; 93005; 94640; 96374; 99284; J1885

== ENCOUNTER 2022-01-03 09:29 | Outpatient (CLI) | payer MEDICARE, OTHER, MEDICAID, SELFPAY ==
[2022-01-03 09:42] LABS: Add Urine Microscopic? NO; Charge for UA Resulting for Rev
[2022-01-03 09:55] LABS: Bilirubin Urine Neg (Negative); Blood Urine Neg (Negative); Glucose Urine UA Norm (Normal); Ketones Urine Negative (Negative); Leukocyte Esterase Urine Negative (Negative); Nitrate Urine Negative (Negative); Protein Urine Neg (Negative); Urine Appearance Clear (CLEAR); Urine Color Straw (Yellow); Urobilinogen Urine Norm (Negative); pH Urine 7 (5-7)
== END 2022-01-03 09:30 | disposition home or self-care (01) ==
PROVIDERS: PCP Internal Medicine; Visit Provider Internal Medicine
DX: Z01.89 Encounter for other specified special examinations (principal)
CPT/HCPCS: 81003

== ENCOUNTER 2022-01-16 12:52 | Emergency (ER) | payer MEDICARE, OTHER, MEDICAID, SELFPAY ==
[2022-01-16 12:55] VITALS: BP 160/94; PULSE 78; RESP 22; O2SAT 100; BMI 41.8
--- NOTE | 2022-01-16 13:10 | XR_ITS ---
WS: [email or web address] Left leg including the tibia and fibula, 01/16/2022 Clinical Data: fall Comparison: None. Findings: No new fractures or dislocations are seen. The tibia and fibula are intact. The soft tissues are norm al. There is an old healed fracture of the distal left fibula. There is an orthopedic plate in the le ft first metatarsal. A left knee arthroplasty is noted. XR/XR tibia fibula LT 2V 90619 Impression: 1. Negative for new fractures. 2. Left knee arthroplasty. 3. Healed fracture of distal left fibula.
--- NOTE | 2022-01-16 13:10 | XR_ITS ---
WS: [email or web address] Right elbow, 2 views, 01/16/2022 Clinical Data: fall Comparison: None. Findings: There is a soft tissue injury posterior to the olecranon. There is a fracture through the olecranon. There is a fracture of the humeral condyles with anterior displacement of the humeral condyles. XR/XR elbow RT 2V 13814 Impression: 1. Fracture of distal right humeral condyles with fracture of the right ulnar o lecranon. 2. Anterior displacement of the elbow joint. 3. Soft tissue injury overlying the olecranon.
--- NOTE | 2022-01-16 13:10 | XR_ITS ---
WS: [email or web address] Left knee, AP and lateral views, 01/16/2022 Clinical Data: fall Comparison: None. Findings: No fractures or dislocations are seen. The left knee arthroplasty is intact. No loosening is seen. Th e joint spaces are normal. The patella is intact. The soft tissues are unremarkable. Vascular calcifications are noted. XR/XR knee LT 1-2V 61916 Impression: 1. Negative for fracture. 2. Left knee arthroplasty.
--- NOTE | 2022-01-16 13:10 | XR_ITS ---
WS: [email or web address] Left femur and thigh, AP and lateral views, 01/16/2022 Clinical Data: fall Comparison: None. Findings: No fractures or dislocations are seen. The soft tissues are normal. There is a left knee arthroplasty .There is degenerative change of the left hip. Monitor leads are adjacent to the left greater trochan ter. Vascular calcification is present in the thigh. XR/XR femur LT min 2V* [id number] Impression: 1. Left knee arthroplasty. 2. Negative for left femoral fracture. 3. Osteoarthritis of the left hip.
--- NOTE | 2022-01-16 13:10 | ECG_ITS ---
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 Measurements Intervals [place] Rate: 82 P: 85 UT: 190 QRS: 30 QRSD: 88 T: 73 QT: 373 QTc: 438 Interpretive Statements SINUS RHYTHM WITH OCCASIONAL SUPRAVENTRICULAR PREMATURE COMPLEXES NONSPECIFIC ST & T-WAVE ABNORMALITY Compared to ECG 01/16/2022 13:41:46 No significant changes Electronically Signed On 01-16-2022 21:21:28 MEDICAL DRIVER by Clementina Kaplan M.D. [email or web address]/store/[id number]
--- NOTE | 2022-01-16 13:10 | XR_ITS ---
WS: [email or web address] Right leg including the tibia and fibula, 2 views, 01/16/2022 Clinical Data: fall Comparison: None. Findings: No fractures or dislocations are seen. The tibia and fibula are intact. The soft tissues are normal. The right knee arthroplasty is intact. XR/XR tibia fibula RT 2V 92348 Impression: 1. Negative for right tibial or fibular fractures. 2. Right knee arthroplasty.
--- NOTE | 2022-01-16 13:10 | XR_ITS ---
WS: [email or web address] Right knee, AP and lateral views, 01/16/2022 Clinical Data: fall Comparison: None. Findings: No fractures or dislocations are seen. The joint spaces are normal. The patella is intact. The soft t issues are unremarkable. The arthroplasty is intact with no loosening. The soft tissues show vascular calcification. XR/XR knee RT 1-2V 92888 Impression: Right knee arthroplasty. Kellgren-John Classification:
--- NOTE | 2022-01-16 13:10 | XR_ITS ---
WS: [email or web address] Portable AP upright chest, 01/16/2022 Clinical Data: trauma Comparison: Portable chest, 10/24/2021. Findings: No nodules, masses or effusions are seen. The heart is slightly enlarged. The pulmonary vas cularity is not increased. No pneumonia or pneumothorax is seen. The aortic arch and descending thora cic aorta show calcification and tortuosity. Monitor leads are on the chest wall. XR/XR chest 1V portable [id number] Impression: Atherosclerosis and mild cardiomegaly.
--- NOTE | 2022-01-16 13:10 | XR_ITS ---
WS: [email or web address] Right arm and humerus, 2 views, 01/16/2022 Clinical Data: fall Comparison: None. Findings: There is elevation of the right humeral head probably from a rotator cuff tear. The right humeral sha ft is intact. The distal right humerus is difficult to see but there is probably a fracture of the hu meral condyles. The soft tissues are normal. XR/[place] [address] Impression: Probable fractures of the distal right humeral condyles.
--- NOTE | 2022-01-16 13:10 | CT_ITS ---
WS: [email or web address] CT HEAD TECHNIQUE: Noncontrast CT of the head obtained from the skullbase to the vertex. CLINICAL INFORMATION: fall COMPARISON: January 03, 2018 DLP: 1007.[address] scans at [facility] use at least one of these dose optimization techniques: automated e xposure control; mA and/or kV adjustment per patient size (includes targeted exams where dose is matc hed to clinical indication); or iterative reconstruction. FINDINGS: No evidence of intracranial hemorrhage or mass effect. Ventricular system and basal cisterns are chu nt. Moderate small vessel changes with moderate parenchymal volume loss. Intracranial vascular calcif ication. No extra-axial fluid collections. No evidence of mass or mass effect. Fluid within the RIGHT maxillary sinus and sphenoid sinuses compatible with sinusitis. Mastoid air ce lls are well aerated. CT/CT head wo con* 68540 IMPRESSION: 1. No evidence of intracranial hemorrhage or mass effect. 2. Moderate small vessel changes with moderate parenchymal volume loss. 3. RIGHT maxillary and sphenoid sinusitis.
--- NOTE | 2022-01-16 13:10 | XR_ITS ---
WS: [email or web address] Right femur and thigh, AP and lateral views, 01/16/2022 Clinical Data: fall Comparison: None. Findings: No new fractures or dislocations are seen. The soft tissues are normal. The visualized knee shows no abnormalities. There is an old intertrochanteric fracture of the right hip reduced with a hip nail. There is a right knee arthroplasty. XR/XR femur RT min 2V* 15700 Impression: 1. Right hip nail reducing old right intertrochanteric hip fracture. 2. Right knee arthroplasty.
--- NOTE | 2022-01-16 13:10 | XR_ITS ---
WS: [email or web address] Pelvis, AP pelvis, 01/16/2022 Clinical Data: trauma Comparison: Right hip and pelvis, 11/28/2008, right hip, 06/24/2016. Findings: No new fractures or dislocations are seen. The SI joints and pubic symphysis are intact. The soft tis sues are not remarkable. A right hip nail is reducing an old right intertrochanteric fracture. Both hips show osteoarthritic n arrowing. The left hip is intact. The SI joints and pubic symphysis show no acute changes. Monitor le ads are on the abdominal wall. XR/XR pelvis 1-2V* 72612 Impression: 1. Negative for new fractures. 2. Right hip nail reducing old right intertrochanteric hip fracture.
--- NOTE | 2022-01-16 13:10 | XR_ITS ---
WS: [email or web address] Right forearm, 2 views, 01/16/2022 Clinical Data: fall Comparison: None. Findings: There are fractures of the distal right humeral condyles and the right ulnar olecranon. There is soft tissue swelling and injury overlying the olecranon fracture. The right radius appears to be intact. The shaft of the ulna is intact. XR/XR forearm RT 2V 73997 Impression: 1. Fractures of the distal right humeral condyles and right ulnar olecranon. 2. Soft tissue swelling and injury over the olecranon fracture.
--- NOTE | 2022-01-16 13:14 | ED_ITS ---
HPI - General Adult General: Chief complaint: Fall Stated complaint: FALL/ PAIN ALL OVER Time Seen by Provider: 01/16/22 13:01 History of Present Illness: Patient is an 86-year-old female to the emergency room after she was found down earlier today. Patient cannot remember what happe beni but around 630 this morning when she woke up, she reports falling. Patient denies any chest pain, shortness breath, lightheadedness palpitation prior to the episode fall. Patient reports pain all over worse in the right elbow. Patient cannot remember if he hit her head. Patient complains of right elbow pain, right humerus pain, right forearm pain, bilateral thigh pain, viral knee pain, bilateral leg pain. She has no other focal complaints today. Patient does not remember her last Tdap. Patient is not on any anticoagulation. Onset: 6:30am Duration:ongoing Location:home Severity:moderate Associated symptoms: Deny chest pain, dyspnea, nausea, rash, palpitations or vomiting Review of Systems Const: Denies: fever(s) or chills Eyes: Denies: change in vision ENMT: Denies: mouth pain Card: Denies: chest pain or palpitations Resp: Denies: dyspnea or non-productive cough GI: Denies: abdominal pain, nausea, vomiting or diarrhea : Denies: dysuria Musc: Reports: extremity pain (+R elbow pain/abrasion/with blood) and other (+ Bilateral knee pain/thigh pain/tib-fib pain, + right forearm/elbow pain) Skin/Breast: Reports: new lesions (+L elbow laceration and bleeding); Denies: rash Neuro: Denies: weakness in extremities Psych: Reports: other (Normal mood) Shamar/Lymph: Denies: easy bruising PFSH ED 2 PFSH: Medical History (Updated 01/16/22 @ 17:22 by Marlys To MD) Dementia Social History (Updated 01/16/22 @ 13:17 by Marlys To MD) Smoking and tobacco status: never smoked Alcohol intake: never Physical Exam Const: COMMON NORMALS: alert HENMT: COMMON NORMALS: atraumatic HEAD & SCALP: atraumatic MOUTH: moist mucous membranes not abnormal Eye: COMMON NORMALS: EOMs intact bilaterally and conjunctivae normal CONJUNCTIVA: Yes conjunctivae normal Neck/C-Spine: COMMON NORMALS: full ROM and supple Resp: COMMON NORMALS: normal respiratory effort and clear to auscultation bilaterally AUSCULTATION: clear to auscultation bilaterally Cardio: COMMON NORMALS: regular rate RATE: regular rate GI: COMMON NORMALS: Soft to palpation and non-tender PALPATION: Yes Soft to palpation Extremity: OTHER: + Right elbow abrasion/lacerationwith significant tenderness to palpation decr eased range of motion of the right elbow due to pain, moderate tenderness to palpation of the right humerus and right forearm to palpation, neurovascular exam of the right upper extremity intact, plus bilateral tib-fib tenderness palpation, bilateral knee tenderness palpation, range of motion of bilateral knees intact, bilateral thigh tenderness palpation. +mild R elbow laceration oozing of blood Neuro: SENSORIUM/ORIENTATION: Yes alert MOTOR EXAM: No Abnormal motor strength present and Other motor observations present (no focal motor deficits) Psych: COMMON NORMALS: speech normal SPEECH: Yes normal speech MOOD & AFFECT: Yes euthymic mood Procedures Laceration Laceration 1: Site: upper extremity and other Side (If applicable): right Size (cm): 5 Description: flap Depth: simple, single layer Local Anesthetic: lidocaine 1% Amount of anesthesia used (mL): 4 Pre-repair: wound explored and irrigated extensively Skin layer closed with: vicryl Size (cm): 3-0 Number of sutures: 3 Technique: simple, interrupted and running Orthopedic Splinting/Casting Injury #1: Side: right Upper Extremity Injury Location: elbow Upper Extremity Immobilizer: sling/shoulder immobilizer and posterior splint Additional Comments: Neurovascular exam of the affected extremity intact after splint placement Course Vital Signs: Vital signs: Vital Signs Pulse Rate 80 01/16/22 14:55 Respiratory Rate 18 01/16/22 14:55 Blood Pressure 164/89 01/16/22 14:55 Pulse Oximetry 94 01/16/22 14:55 [facility] - General Adult Medical Decision Making 86-year-old female presents emergency room with fall. Patient has mild bleeding abrasion over the right elbow. Range of motion of right elbow severely limited due to pain and swelling. Patient has diffuse pain elsewhere in the body. Questionable LOC. Work-up: CBC, BMP, troponin x2, EKG x2, CT head, x-ray right elbow, x-ray forearm, x-ray humerus, bilateral knee x-ray, bilateral tib-fib x-ray, bilateral thigh x-ray, pelvis and chest x-ray Intervention: Tylenol, observation On reassessment, patient was found to have a right humeral condylar fracture. Case discussed with Dr. Villagomez who recommended posterior splint. Patient also to have a posterior elbow superifical laceration w/ skin tags. Lesions were rep aired loosely with sutures to stop bleeding. Please refer to the procedure note. Patient is splinted with a posterior splint. Please refer to the procedure note. She has no complaints of active pain. No signs of compartment syndrome currently. UA is consistent with UTI, which is treated with ceftraixone in the ED. Troponin similar to baseline, EKG is non ischemic. I do not suspect that this is cardiac-related. Patient is AAOx3 and fully conversant. She denies any chest pain, palpitation or shortness of breath today prior to the episode of fall. Do not suspect ACS and syncope as the cause of fall. I have given patient follow up with our machine adjuster leader case trim to be seen by our outpatient Dr. Villagomez who will evaluate patient outpatient. Patient aware of a call from our machine adjuster leader case trim to schedule for appointment(s) and verbalizes understanding of the importance of following up. Rx perocect PRN pain, bactrim DS for UTI Disposition: Discharge. Patient counseled regarding diagnostic impression, t reatment plan. Patient given ED strict return precautions to return for continuation, worsening, or development of new symptoms. Instructed to f/u w/ PCP and Dr. Villagomez regarding symptoms today. Patient verbalized understanding. Given strict return precaution for any signs of compartment syndrome. Lab Data : 01/16/22 15:05 01/16/22 15:05 Radiology Impressions Chest X-Ray 01/16/22 13:10 Impression: Atherosclerosis and mild cardiomegaly. Elbow X-Ray 01/16/22 13:10 Impression: 1. Fracture of distal right humeral condyles with fracture of the right ulnar olecranon. 2. Anterior displacement of the elbow joint. 3. Soft tissue injury overlying the olecranon. Femur X-Ray 01/16/22 13:10 Impression: 1. Left knee arthroplasty. 2. Negative for left femoral fracture. 3. Osteoarthritis of the left hip. Forearm X-Ray 01/16/22 13:10 Impression: 1. Fractures of the distal right humeral condyles and right ulnar olecranon. 2. Soft tissue swelling and injury over the olecranon fracture. Head CT 01/16/22 13:10 IMPRESSION: 1. No evidence of intracranial hemorrhage or mass effect. 2. Moderate small vessel changes with moderate parenchymal volume loss. 3. RIGHT maxillary and sphenoid sinusitis. Humerus X-Ray 01/16/22 13:10 Impression: Probable fractures of the distal right humeral condyles. Knee X-Ray 01/16/22 13:10 Impression: 1. Negative for fracture. 2. Left knee arthroplasty. Pelvis X-Ray 01/16/22 13:10 Impression: 1. Negative for new fractures. 2. Right hip nail reducing old right intertrochanteric hip fracture. Tibia/Fibula X-Ray 01/16/22 13:10 Impression: 1. Negative for new fractures. 2. Left knee arthroplasty. 3. Healed fracture of distal left fibula. Laboratory Results WBC 16.0 10^3/uL (4.0-10.0) H 01/16/22 15:05 RBC 4.18 10^6/uL (4.1-5.3) 01/16/22 15:05 Hgb 12.0 g/dL (11.5-15.3) 01/16/22 15:05 Hct 38.5 % (37.0-47.0) 01/16/22 15:05 MCV 92.1 fl (81-99) 01/16/22 15:05 MCH 28.7 pg (28.0-34.0) 01/16/22 15:05 MCHC 31.2 g/dL (30.0-36.0) 01/16/22 15:05 RDW 14.2 % (12.1-15.1) 01/16/22 15:05 Plt Count 296 10^3/cmm (130-400) 01/16/22 15:05 MPV 9.9 fL (7.4-10.4) 01/16/22 15:05 Neut % (Auto) 86.8 % 01/16/22 15:05 Lymph % (Auto) 6.3 % 01/16/22 15:05 [place] % (Auto) 6.1 % 01/16/22 15:05 Eos % (Auto) 0.1 % 01/16/22 15:05 Baso % (Auto) 0.3 % 01/16/22 15:05 Neut # (Auto) 13.89 10^3/uL (1.8-7.7) H 01/16/22 15:05 Lymph # (Auto) 1.0 10^3/uL (0.8-4.8) 01/16/22 15:05 [place] # (Auto) 1.0 10^3/uL (0.2-0.9) H 01/16/22 15:05 Eos # (Auto) 0.0 10^3/uL (0.0-0.8) 01/16/22 15:05 Baso # (Auto) 0.0 10^3/uL (0.0-0.1) 01/16/22 15:05 Nucleated RBC % (auto) 0 % 01/16/22 15:05 Nucleated RBCs # 0.0 /100WBC 01/16/22 15:05 Sodium 138 mmol/L (136-145) 01/16/22 15:05 Potassium 4.1 mmol/L (3.5-5.1) 01/16/22 15:05 Chloride 99 mmol/L (98-107) 01/16/22 15:05 Carbon Dioxide 30 mmol/L (22-29) H 01/16/22 15:05 Anion Gap 13.1 (5-19) 01/16/22 15:05 BUN 16 mg/dL (8-23) 01/16/22 15:05 Creatinine 0.8 mg/dL (0.5-0.9) 01/16/22 15:05 GFR Calculation Not Reportable 01/16/22 15:05 Glucose 108 mg/dL (65-115) 01/16/22 15:05 Calculated Osmolality 288 mOsm/kg (285-295) 01/16/22 15:05 Calcium 9.5 mg/dL (8.5-10.5) 01/16/22 15:05 Troponin T Baseline 26 ng/L (0-10) H 01/16/22 15:05 Troponin T 120 Minute 27.44 ng/L (0-10) H 01/16/22 17:19 Delta Troponin T 1.44 ABS# (0-10) 01/16/22 17:19 Urine Color Yellow (Yellow) 01/16/22 13:30 Urine Appearance Hazy (CLEAR) A 01/16/22 13:30 Urine pH 5 (5-7) 01/16/22 13:30 Ur Specific Roy 1.015 (1.005-1.030) 01/16/22 13:30 Urine Protein Neg (Negative) 01/16/22 13:30 Urine Glucose (UA) Norm (Normal) 01/16/22 13:30 Urine Ketones Negative (Negative) 01/16/22 13:30 Urine Blood 2+ (Negative) H 01/16/22 13:30 Urine Nitrate Negative (Negative) 01/16/22 13:30 Urine Bilirubin Neg (Negative) 01/16/22 13:30 Urine Urobilinogen Neg mg/dL (Negative) 01/16/22 13:30 Ur Leukocyte Esterase 2+ (Negative) H 01/16/22 13:30 Urine RBC 5-10 /hpf (0-2) H 01/16/22 13:30 Urine WBC 25-40 /hpf (0-5) H 01/16/22 13:30 Ur Squamous Epith Cells 0-4 /hpf (0-5) H 01/16/22 13:30 Amorphous Sediment 1+ /hpf 01/16/22 13:30 Urine Bacteria 1+ /hpf (NONE) H 01/16/22 13:30 Imaging Data Other Imaging: Radiologist's impression: [employer] ([facility] [address] XRay Report Signed Patient: Solange Roberts Unit #: [id number] : 1935 Age/Sex: 86 / F ADM Date: 01/16/22 Loc: ER Room/Bed: Attending Dr: Ordering Provider/Ordering MD: Marlys To MD Date of Service: 01/16/22 Procedure(s): XR tibia fibula RT 2V 34490 Accession Number(s): [id number] Report Number: [id number] WS: [email or web address] Right leg including the tibia and fibula, 2 views, 01/16/2022 Clinical Data: fall Comparison: None. Findings: No fractures or dislocations are seen. The tibia and fibula are intact. The soft tissues are normal. The right knee arthroplasty is intact. XR/XR tibia fibula RT 2V 37775 Impression: ? 1. Negative for right tibial or fibular fractures. 2. Right knee arthroplasty. ? Dictated By: Prema Dumont MD Signed By: Prema Dumont MD Signed Date/Time: 01/16/22 1507 DD/ [address] [address] XRay Report Signed Patient: Solange Roberts Unit #: [id number] : 1935 Age/Sex: 86 / F ADM Date: 01/16/22 Loc: ER Room/Bed: Attending Dr: Ordering Provider/Ordering MD: Marlys To MD Date of Service: 01/16/22 Procedure(s): XR tibia fibula LT 2V 92807 Accession Number(s): [id number] Report Number: [id number] WS: [email or web address] Left leg including the tibia and fibula, 01/16/2022 Clinical Data: fall Comparison: None. Findings: No new fractures or dislocations are seen. The tibia and fibula are intact. The soft tissues are normal. There is an old healed fracture of the distal left fibula. There is an orthopedic plate in the left first metatarsal. A left knee arthroplasty is noted. XR/XR tibia fibula LT 2V 47584 Impression: ? 1. Negative for new fractures. 2. Left knee arthroplasty. 3. Healed fracture of distal left fibula. ? Dictated By: Prema Dumont MD Signed By: Prema Dumont MD Signed Date/Time: 01/16/22 1514 DD/ [address] [address] XRay Report Signed Patient: Solange Roberts Unit #: [id number] : 1935 Age/Sex: 86 / F ADM Date: 01/16/22 Loc: ER Room/Bed: Attending Dr: Ordering Provider/Ordering MD: Marlys To MD Date of Service: 01/16/22 Procedure(s): XR pelvis 1-2V* 15642 Accession Number(s): [id number] Report Number: [id number] WS: [email or web address] Pelvis, AP pelvis, 01/16/2022 Clinical Data: trauma Comparison: Right hip and pelvis, 11/28/2008, right hip, 06/24/2016. Findings: No new fractures or dislocations are seen. The SI joints and pubic symphysis are intact. The soft tissues are not remarkable. A right hip nail is reducing an old right intertrochanteric fracture. Both hips show osteoarthritic narrowing. The left hip is intact. The SI joints and pubic symphysis show no acute changes. Monitor leads are on the abdominal wall. XR/XR pelvis 1-2V* 76305 Impression: ? 1. Negative for new fractures. 2. Right hip nail reducing old right intertrochanteric hip fracture. ? Dictated By: Prema Dumont MD Signed By: Prema Dumont MD Signed Date/Time: 01/16/22 1503 DD/ [address] [address] XRay Report Signed Patient: Solange Roberts Unit #: [id number] : 1935 Age/Sex: 86 / F ADM Date: 01/16/22 Loc: ER Room/Bed: Attending Dr: Ordering Provider/Ordering MD: Marlys To MD Date of Service: 01/16/22 Procedure(s): XR knee LT 1-2V 21282 Accession Number(s): [id number] Report Number: [id number] WS: [email or web address] Left knee, AP and lateral views, 01/16/2022 Clinical Data: fall Comparison: None. Findings: No fractures or dislocations are seen. The left knee arthroplasty is intact. No loosening is seen. The joint spaces are normal. The patella is intact. The soft tissues are unremarkable. Vascular calcifications are noted. XR/XR knee LT 1-2V 76274 Impression: ? 1. Negative for fracture. 2. Left knee arthroplasty. ? ? ? Dictated By: Prema Dumont MD Signed By: Prema Dumont MD Signed Date/Time: 01/16/22 151 DD/ [address] [place] [address] XRay Report Signed Patient: Solange Roberts Unit #: [id number] : 1935 Age/Sex: 86 / F ADM Date: 01/16/22 Loc: ER Room/Bed: Attending Dr: Ordering Provider/Ordering MD: Marlys To MD Date of Service: 01/16/22 Procedure(s): XR knee RT 1-2V 89450 Accession Number(s): [id number] Report Number: [id number] WS: [email or web address] Right knee, AP and lateral views, 01/16/2022 Clinical Data: fall Comparison: None. Findings: No fractures or dislocations are seen. The joint spaces are normal. The patella is intact. The soft tissues are unremarkable. The arthroplasty is intact with no loosening. The soft tissues show vascular calcification. XR/XR knee RT 1-2V 92382 Impression: Right knee arthroplasty. ? Kellgren-John Classification: ? Dictated By: Prema Dumont MD Signed By: Prema Dumont MD Signed Date/Time: 01/16/22 1506 DD/ [address] [address] XRay Report Signed Patient: Solange Roberts Unit #: [id number] : 1935 Age/Sex: 86 / F ADM Date: 01/16/22 Loc: ER Room/Bed: Attending Dr: Ordering Provider/Ordering MD: Malrys To MD Date of Service: 01/16/22 Procedure(s): [place] [address] Accession Number(s): [id number] Report Number: [id number] WS: [email or web address] Right arm and humerus, 2 views, 01/16/2022 Clinical Data: fall Comparison: None. Findings: There is elevation of the right humeral head probably from a rotator cuff tear. The right humeral shaft is intact. The distal right humerus is difficult to see but there is probably a fracture of the humeral condyles. The soft tissues are normal. XR/[place] [address] Impression: Probable fractures of the distal right humeral condyles. ? ? Dictated By: Prema Dumont MD Signed By: Prema uDmont MD Signed Date/Time: 01/16/227 DD/ 145 [place] [address] XRay Report Signed Patient: Solange Roberts Unit #: [id number] : 1935 Age/Sex: 86 / F ADM Date: 01/16/22 Loc: ER Room/Bed: Attending Dr: Ordering Provider/Ordering MD: Marlys To MD Date of Service: 01/16/22 Procedure(s): XR knee LT 1-2V 42129 Accession Number(s): [id number] Report Number: [id number] WS: [email or web address] Left knee, AP and lateral views, 01/16/2022 Clinical Data: fall Comparison: None. Findings: No fractures or dislocations are seen. The left knee arthroplasty is intact. No loosening is seen. The joint spaces are normal. The patella is intact. The soft tissues are unremarkable. Vascular calcifications are noted. XR/XR knee LT 1-2V 31517 Impression: ? 1. Negative for fracture. 2. Left knee arthroplasty. ? ? ? Dictated By: Prema Dumont MD Signed By: Prema Dumont MD Signed Date/Time: 01/16/221511 DD/ [address] [address] [address] Scan Report Signed Patient: Solange Roberts Unit #: [id number] : 1935 Age/Sex: 86 / F ADM Date: 01/16/22 Loc: ER Room/Bed: Attending Dr: Ordering Provider/Ordering MD: Marlys To MD Date of Service: 01/16/22 Procedure(s): CT head wo con* 02783 Accession Number(s): [id number] Report Number: [id number] WS: [email or web address] CT HEAD TECHNIQUE: Noncontrast CT of the head obtained from the skullbase to the vertex. CLINICAL INFORMATION: fall COMPARISON: January 03, 2018 DLP: 1007.[address] scans at [facility] use at least one of these dose optimization techniques: automated exposure control; mA and/or kV adjustment per patient size (includes targeted exams where dose is matched to clinical indication); or iterative reconstruction. FINDINGS: No evidence of intracranial hemorrhage or mass effect. Ventricular system and basal cisterns are patent. Moderate small vessel changes with moderate parenchymal volume loss. Intracranial vascular calcification. No extra-axial fluid collections. No evidence of mass or mass effect. Fluid within the RIGHT maxillary sinus and sphenoid sinuses compatible with sinusitis. Mastoid air cells are well aerated. CT/CT head wo con* 39590 IMPRESSION: ? 1.? No evidence of intracranial hemorrhage or mass effect. 2.? Moderate small vessel changes with moderate parenchymal volume loss. 3.? RIGHT maxillary and sphenoid sinusitis. ? ? Dictated By: Tobi Farfan MD Signed By: Tobi Farfan MD Signed Date/Time: 01/16/221541 DD/ 153 Discharge Plan Discharge Patient Disposition: Home Clinical Impression: Fall, Elbow pain, Closed fracture of condyle of humerus, Acute UTI Condition: Stable Prescriptions: New Percocet 5-325 mg tablet 1 tab PO Q8H PRN (Reason: pain) Qty: 9 0RF Bactrim DS 800-160 mg tablet 1 tab PO BID 7 Days Qty: 14 0RF Florastor 250 mg capsule 250 mg PO Q12H 7 Days Qty: 14 0RF Held Tylenol Extra Strength 500 mg Tablet 1,000 mg PO Q6H PRN (Reason: Pain) 0RF Hold Instructions: Doctor's Order No Action ipratropium-albuterol 0.5 mg-3 mg(2.5 mg base)/3 mL Solution For Nebulization 3 ml INHALATION TID PRN (Reason: Shortness Of Breath) 0RF albuterol sulfate 2.5 mg /3 mL (0.083 %) Solution For Nebulization 2.5 mg INHALATION Q4H PRN (Reason: Shortness Of Breath) 0RF citalopram 40 mg Tablet 40 mg PO DAILY 0RF trazodone 50 mg Tablet 50 mg PO BEDTIME 0RF hydrocodone-acetaminophen 5-325 mg Tablet 1 - 2 tab PO Q4H PRN (Reason: Pain) 0RF loperamide 2 mg Tablet 2 mg PO Q4H PRN (Reason: Diarrhea) 0RF Rx Instructions: administer after each loose stool until symptoms controlled; do not exceed 8 mg per 24 hrs potassium chloride 10 mEq Tablet Extended Release 10 meq PO DAILY 0RF Maricarmen-Tussin 100 mg/5 mL Liquid 200 mg PO QID PRN (Reason: Cough) 0RF pantoprazole 20 mg Tablet,Delayed Release (Dr/Ec) 20 mg PO DAILY 0RF Ativan 0.5 mg Tablet 0.5 mg PO TID PRN (Reason: Anxiety) 0RF Milk of Magnesia 400 mg/5 mL Suspension 30 ml PO DAILY PRN (Reason: Constipation) 0RF Tessalon Perles 100 mg Capsule 200 mg PO BID PRN (Reason: Cough) 0RF Dulcolax (bisacodyl) 10 mg Suppository 10 mg VT DAILY PRN (Reason: Constipation) 0RF Fleet Enema 19-7 gram/118 mL Enema 118 ml VT DAILY PRN (Reason: Constipation) 0RF budesonide 0.5 mg/2 mL Suspension For Nebulization 0.5 mg INHALATION BID 0RF aspirin 81 mg Tablet,Chewable 81 mg PO DAILY 0RF montelukast 10 mg Tablet 10 mg PO DAILY 0RF Lasix 20 mg Tablet 60 mg PO DAILY 0RF ProAir HFA 90 mcg/actuation Hfa Aerosol Inhaler 2 puff INHALATION Q2H PRN (Reason: Shortness Of Breath) 0RF Culturelle 10 billion cell Capsule 1 cap PO DAILY 0RF Flonase 50 mcg/actuation [place],Suspension 1 spray INTRANASAL DAILY 0RF Rx Instructions: administer into each nostril loratadine 10 mg Tablet 10 mg PO DAILY PRN (Reason: Allergy Symptoms) 0RF buspirone 15 mg Tablet 15 mg PO BID 0RF olmesartan 40 mg Tablet 40 mg PO DAILY 0RF Probiotic 3 billion cell Capsule 3,000 mmu cells PO DAILY PRN (Reason: when taking abx) 0RF Rx Instructions: administer with a meal Discharge Orders: Discharge ED (Routine); Ordered 01/16/22 Ordered By: Marlys To Referrals: Robert Almendarez DO [Primary Care Provider] - Discharge Diet: Advance as tolerated Discharge Activity: Increase activity as tolerated Patient Instructions: Care For Your Stitches (ED), Dysuria (ED), Fall Prevention (ED) Activity Restrictions/Additional Instructions: Our machine adjuster leader case trim will have you follow-up with Dr. Villagomez in the next few days for your elbow pain. You would be expected to have a phone call with our machine adjuster leader case trim who will put you on the schedule. You can expect a call from us in the next 2-3 days. Come back to the emergency room if having numbness, worsening pain, swelling, inability to move your shoulder, or any new worsening complaints as this can be signs of compartment syndrome. Your suture(s) need to be removed in 10 to 14 days. Coding Level of Care Code ED Outreach Rep for Rico Fwd Exam Comprehensive
[2022-01-16 13:33] VITALS: PULSE 79; RESP 20; O2SAT 94
--- NOTE | 2022-01-16 13:59 | PC.NURSE ---
Addendum entered by Meggan Bailey RN 01/16/22 19:08: Report called to [facility] facility. Reviewed all new meds & dx. Addendum entered by Meggan Bailey RN 01/16/22 17:08: Administered 0.5mg dilaudid IV per order for c/o 10/10 R shoulder pain. Abx started. Addendum entered by Meggan Bailey RN 01/16/22 16:34: Moderate amount of bleeding to R upper harm from laceration r/t fall today. Dr. To assessed it earlier. I cleansed w NS, applied telfa & wrapped w kerlex then coban. She was incont of urine & required complete bed chg. Repositioned for comfort, placed pillow under RUE to better immobilize. Original Note: Void per bedpan, urine sample obtained d/t strong smell, concentrated dark yellow color.
--- NOTE | 2022-01-16 14:00 | PC.ADMIT ---
Addendum entered by Meggan Bailey RN 01/16/22 14:16: XR @BS for multiple XRs. Original Note: Wili Bernard Dr Admission Note: The patient,Solange Roberts,86 y/o, was given written information regarding hospital policies, unit procedures and contact persons. Patient's smoking status: never smoked. Vital Signs - 8 hr 01/16/22 12:55 01/16/22 13:33 Pulse Rate 78 79 Respiratory Rate 22 H 20 H Blood Pressure 160/94 Pulse Oximetry 100 94 Admitted after fall from skilled facility, has laceration to R upper arm, c/o pain to R U&LEs. States she wears 4L/NC at home, sats currently 94 w 2L/NC. No obvious s/s of distress other than discomfort to R side.
[2022-01-16] MEDS: tetanus-dipt-pertussis 0.5 mL SDV IM (14:42)
[2022-01-16] MEDS: acetaminophen 500 mg Tablet 1000 MG PO (14:45)
[2022-01-16 14:55] VITALS: BP 164/89; PULSE 80; RESP 18; O2SAT 94
[2022-01-16 15:10] LABS: Basophils % 0.3 %; Eosinophils % 0.1 %; Hematocrit 38.5 % (37.0-47.0); Lymphocytes % 6.3 %; Mean Corpuscular HGB Conc 31.2 g/dL (30.0-36.0); Mean Corpuscular Hemoglobin 28.7 pg (28.0-34.0); Mean Corpuscular Volume 92.1 fl (81-99); Mean Platelet Volume 9.9 fL (7.4-10.4); Monocytes % 6.1 %; Neutrophils # 13.89 10^3/uL (1.8-7.7); Neutrophils % 86.8 %; Nucleated Red Blood Cells % 0 %; Platelet Count 296 10^3/cmm (130-400); Red Blood Count 4.18 10^6/uL (4.1-5.3); Red Cell Distribution Width 14.2 % (12.1-15.1)
--- NOTE | 2022-01-16 15:10 | ECG_ITS ---
[facility] Test Date: 2022-01-16 Pat Name: Solange Roberts Department: Room: Gender: Female Web Development Manager: : 1935 Requested By: Marlys To Order Number: [id number] Shari MD: Clementina Kaplan M.D. Measurements Intervals [place] Rate: 78 P: 50 ND: 184 QRS: 11 QRSD: 87 T: 52 QT: 408 QTc: 467 Interpretive Statements SINUS RHYTHM WITH OCCASIONAL SUPRAVENTRICULAR PREMATURE COMPLEXES NONSPECIFIC T-WAVE ABNORMALITY Compared to ECG 10/24/2021 09:55:38 T-wave abnormality now present First degree AV block no longer present Left ventricular hypertrophy no longer present ST (T wave) deviation no longer present Electronically Signed On 01-16-2022 14:43:03 [employer]AX SENIOR [employer]OCIATE by Clementina Kaplan M.D. [email or web address]
[2022-01-16 15:32] LABS: Anion Gap 13.1 (5-19); Blood Urea Nitrogen 16 mg/dL (8-23); Calcium 9.5 mg/dL (8.5-10.5); Carbon Dioxide 30 mmol/L (22-29); Chloride 99 mmol/L (98-107); Glucose 108 mg/dL (65-115); Osmolality Calculated 288 mOsm/kg (285-295); Potassium 4.1 mmol/L (3.5-5.1); Sodium 138 mmol/L (136-145)
[2022-01-16 16:14] LABS: Troponin(5th) Baseline 26 ng/L (0-10)
[2022-01-16] MEDS: HYDROmorphone 1 mg/mL INJ 1 mL 0.5 MG IVP (17:00)
[2022-01-16] MEDS: cefTRIAXone 1,000 MG in sodium chloride 0.9% (plus) 50 ML 100 MG IV (17:02)
[2022-01-16 17:17] LABS: Add Urine Microscopic? YES; Bilirubin Urine Neg (Negative); Blood Urine 2+ (Negative); Glucose Urine UA Norm (Normal); Ketones Urine Negative (Negative); Leukocyte Esterase Urine 2+ (Negative); Nitrate Urine Negative (Negative); Protein Urine Neg (Negative); Specific Gravity, Urine 1.015 (1.005-1.030); Urine Appearance Hazy (CLEAR); Urine Color Yellow (Yellow); Urobilinogen Urine Neg (Negative); pH Urine 5 (5-7)
[2022-01-16 17:18] LABS: Amorphous Sediment Urine 1+ /hpf; Bacteria Urine 1+ /hpf; Squamous Epithelial Cell Urine 0-4 /hpf (0-5); WBC Urine 25-40 /hpf (0-5)
[2022-01-16 17:19] LABS: Add Urine Culture? Yes
[2022-01-16 17:53] LABS: Troponin 5 2HR 27.44 ng/L (0-10)
[2022-01-16 17:56] LABS: Troponin 5 2HR Delta 1.44 ABS# (0-10)
--- NOTE | 2022-01-17 10:09 | DCPLANNER ---
Addendum entered by Kari Ann 01/25/22 15:17: Patient had a follow up appointment scheduled for 01.21.[address] Villagomez at ortho - patient did attend appointment. Original Note: financial manager had message to schedule a follow up appointment for patient with ortho. financial manager called the ortho clinic, spoke with Arlene, gave clinic patients information. financial manager was told that patients information would be printed and reviewed. Clinic will call patient with appointment information.
== END 2022-01-16 20:28 | disposition home or self-care (01) ==
PROVIDERS: Emergency Provider Emergency Medicine; PCP Internal Medicine
DX: S42.421A Displaced comminuted supracondylar fracture without intercondylar fracture of right humerus, initial encounter for closed fracture (principal); S52.021A Displaced fracture of olecranon process without intraarticular extension of right ulna, initial encounter for closed fracture; S51.011A Laceration without foreign body of right elbow, initial encounter; N39.0 Urinary tract infection, site not specified; W19.XXXA Unspecified fall, initial encounter; F03.90 Unspecified dementia, unspecified severity, without behavioral disturbance, psychotic disturbance, mood disturbance, and anxiety; Z79.82 Long term (current) use of aspirin; Z23 Encounter for immunization
CPT/HCPCS: 12002; 70450; 71045; 72170; 73060; 73070; 73090; 73552; 73560; 73590; 80048; 81001; 84484; 85025; 87077; 87086; 87186; 90471; 90715; 93005; 96365; 96375; 99284; J0696; J1170

== ENCOUNTER → 2022-01-21 13:12 | Outpatient (BNVA) | payer MEDICARE, OTHER, MEDICAID, SELFPAY | PROVIDERS: PCP Internal Medicine; Referring Provider Emergency Medicine; Visit Provider Specialist | DX: S42.411A Displaced simple supracondylar fracture without intercondylar fracture of right humerus, initial encounter for closed fracture (principal); W19.XXXA Unspecified fall, initial encounter; Z87.891 Personal history of nicotine dependence; Z46.89 Encounter for fitting and adjustment of other specified devices; S42.391D Other fracture of shaft of right humerus, subsequent encounter for fracture with routine healing; X58.XXXD Exposure to other specified factors, subsequent encounter | CPT/HCPCS: 73060; 73070; 97760; L3761 ==

== ENCOUNTER 2022-01-21 15:12 | Outpatient (CLI) | payer MEDICARE, OTHER, MEDICAID, SELFPAY | END 2022-01-21 15:13 | disposition home or self-care (01) | LOC: SPT 15:12 | PROVIDERS: PCP Internal Medicine; Visit Provider Specialist | DX: Z46.89 Encounter for fitting and adjustment of other specified devices (principal); S42.391D Other fracture of shaft of right humerus, subsequent encounter for fracture with routine healing; X58.XXXD Exposure to other specified factors, subsequent encounter | CPT/HCPCS: 97760; L3761 ==

== ENCOUNTER → 2022-05-01 15:20 | Outpatient (BNVA) | payer MEDICARE, OTHER, MEDICAID, SELFPAY | PROVIDERS: PCP Internal Medicine; Visit Provider Specialist | DX: S42.411A Displaced simple supracondylar fracture without intercondylar fracture of right humerus, initial encounter for closed fracture (principal); L98.499 Non-pressure chronic ulcer of skin of other sites with unspecified severity; L08.9 Local infection of the skin and subcutaneous tissue, unspecified; X58.XXXA Exposure to other specified factors, initial encounter | CPT/HCPCS: 73080; 99213 ==